=== PATIENT | male | born 1960 | race African-American/Black ===

== ENCOUNTER → 2016-10-05 | Day surgery (SDC) | payer OTHER ==
[~2016-10-05] MED LIST: ACETAMINOPHEN/HYDROcodone 325 MG/5 MG TAB ONE; BACT800T5 PO; BUPIVACAINE/EPINEPHRINE 0.5% 50 ML VIAL ONE; CEPH500C3 PO; EPINEPHrine HCL (1:1000) 1 MG/ML VIAL OTHER ONE; LISI-360 PO; MIDAZOLAM HCL 2 MG/2 ML VIAL ONE; ONDANSETRON HCL 4 MG/2 ML VIAL IV PUSH ONE; PROPOFOL 200 MG/20 ML AMP IV ONE; TRAZ150T75 PO; TRIAMCINOLONE ACETONIDE 40 MG/ML VIAL ONE; ceFAZolin INJ 1,000 MG VIAL ONE
--- NOTE | 2016-10-05 22:27 | MP ---
cc: FRANCISCO TALLEY M.D. 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 Lateral meniscal tear. SURGEON Dr. Francisco Talley METAL INSPECTOR MICHELE Lopez The surgical procedure was assisted by my Advanced Registered Nurse Practitioner. My BUSINESS PROCESS CONSULTANT presence was necessary throughout this case for the manipulation and positioning of the surgical extremity. My BUSINESS PROCESS CONSULTANT was assisting me throughout the duration of this procedure. The skill set of an Advance Registered Nurse Practitioner was medically necessary to complete this procedure. During the surgical case, the medical surgical tech was working at the back table and the Advance Registered Nurse Practitioner was directly assisting me. PROCEDURE Right knee arthroscopic partial medial and partial lateral meniscectomies with chondroplasty medial femoral condyle. ESTIMATED BLOOD LOSS Minimal. ANESTHESIA General anesthesia. PROCEDURE The patient was brought back to the operative theater. The patient received intravenous Ancef. General anesthesia was administered. The right lower extremity was prepped and draped in the usual sterile fashion after being placed into a leg chavez. We started with a standard inferolateral portal followed by inferomedial portal under spinal needle visualization. We found mild to moderate synovitis in suprapatellar pouch. There were a couple small loose bodies which were evacuated with an oscillating shaver. The patella had very minimal chondromalacia. The trochlea had grade 3 to grade 4 chondromalacia in the central portion which did articulate with the midportion of the patella. The trochlea did not have significant areas of unstable segments of cartilage. The medial femoral condyle was found to have extensive grade 3 chondromalacia entire weightbearing surface with multiple areas of unstable cartilage at the edges of this. This was probed. We then used an oscillating shaver to smooth down the cartilage fragments off of the medial femoral condyle. We found an extensive tear of the medial meniscus at the posterior horn. We did probe this using oscillating shaver, meniscal biter to perform a partial meniscectomy, removing approximately 25% of the meniscus. Additionally, there was a small tear in the anterior horn of the medial meniscus which we used an oscillating shaver to debride. The anterior cruciate ligament was found to be intact. Lateral compartment was free of significant chondromalacia, although, there was a small amount of inner edge peripheral tearing towards the junction of the anterior horn and the midbody, used an oscillating shaver to remove this. Ultimately, removed about 10% of the meniscus. We made sure no loose bodies in the medial lateral gutters. We evacuated fluid in the joint and then gave an interarticular injection with 30 cc of 0.25% Marcaine with 40 milligrams of Kenalog. Arthroscopic portals were closed with 2-0 Vicryl followed by 3-0 nylon. Leg was dressed. Postop plan is weightbear as tolerated, early range of motion. MD TIM Freeman/NAYAN /1:21 PM /10:16 PM
== END | disposition home or self-care (01) ==
LOC: ESDC 11:08
PROVIDERS: ATTEND Orthopaedic Surgery
DX: S83.241A Other tear of medial meniscus, current injury, right knee, initial encounter (principal); M94.261 Chondromalacia, right knee; S83.281A Other tear of lateral meniscus, current injury, right knee, initial encounter
CPT/HCPCS: 01400; 29880; J0171; J0690; J2250; J2405; J3010; J3301

== ENCOUNTER 2017-07-04 15:06 | Emergency (ER) | payer OTHER ==
[~2017-07-04] VITALS: Ht 177.8 cm; Wt 70.0 kg
[2017-07-04] VITALS (7 sets, daily range): BP systolic 149–184; BP diastolic 104–115; PULSE 80–90; RESP 11–25; TEMP 97.8; O2SAT 99–100
[~2017-07-04 15:06] MED LIST changes: -ACETAMINOPHEN/HYDROcodone 325 MG/5 MG TAB ONE; -BUPIVACAINE/EPINEPHRINE 0.5% 50 ML VIAL ONE; -EPINEPHrine HCL (1:1000) 1 MG/ML VIAL OTHER ONE; -MIDAZOLAM HCL 2 MG/2 ML VIAL ONE; -ONDANSETRON HCL 4 MG/2 ML VIAL IV PUSH ONE; -PROPOFOL 200 MG/20 ML AMP IV ONE; -TRIAMCINOLONE ACETONIDE 40 MG/ML VIAL ONE; -ceFAZolin INJ 1,000 MG VIAL ONE
--- NOTE | 2017-07-04 15:29 | PD ---
HPI Chief Complaint: Altered Mental Status Time Seen by Provider: 15:20 Travel History International Travel<30 days: No Contact w/Intl Traveler<30days: No History of Present Illness HPI Patient comes to the emergency department by EMS for altered mental status. Per EMS patient was found unresponsive in car. EMS reports family began CPR. EMS states when they got there they set patient up and he was awake. Patient does have a history of pain medication for chronic pain and diabetes medicatin. Patient is easy to wake up but falls back asleep quickly. Thus limiting H and P. PFSH Past Medical History Arthritis: Yes (IN SPINE) Bipolar Disorder: Yes Depression: Yes Heart Rhythm Problems: No Cardiac Catheterization: No Cardiovascular Problems: Yes High Cholesterol: No Congestive Heart Failure: No Diabetes: No Diminished Hearing: No Headaches: Yes Hypertension: Yes Musculoskeletal: Yes (CHRONIC BACK PAIN, BULGING L5, S1, CARPAL TUNNEL BILATERALLY) Schizophrenia: Yes Seizures: Yes (CHILDHOOD) Past Surgical History Body Medical Devices: STS USES TENS UNIT Cardiac Surgery: Yes (IRREGULAR HEART BEAT) Coronary Artery Bypass Graft: No Social History Alcohol Use: Yes ("VERY LITTLE") Tobacco Use: Yes (10 PER DAY) Substance Use: Yes (POT AND CRACK COCAINE, STATES RECENT USE OF POT) Allergies-Medications (Allergen,Severity, Reaction): Coded Allergies: acetaminophen (Unverified Allergy, Mild, ABD PAIN, 07/04/17) aspirin (Unverified Allergy, Mild, RASH, 07/04/17) propoxyphene (Unverified Allergy, Mild, ABD PAIN, 07/04/17) Reported Meds & Prescriptions Reported Meds & Active Scripts Active Reported Dilaudid (Hydromorphone HCl) 8 Mg Tab 8 Mg PO TID Lisinopril 10 Mg Tab 10 Mg PO DAILY Trazodone (Trazodone HCl) 150 Mg Tablet 150 Mg PO HS Prednisone 20 Mg Tab 20 Mg PO DIRECTED Take 60 MG daily x 4 days, then 40 MG x 4 days, then 20 MG daily x 4 days. Bactrim DS (Sulfamethoxazole-Trimethoprim) 800-160 Mg Tab 1 Tab PO BID Review of Systems ROS Limitations: Clinical Condition Except as stated in HPI: all other systems reviewed are Neg Physical Exam Exam Limitations: Clinical Condition Narrative GENERAL: Well-developed, well nourished, in no acute distress, and non-ill appearing. SKIN: Focused skin assessment warm and dry. HEAD: Atraumatic. Normocephalic. EYES: Pupils equal and round and pinpoint. EOMI. No scleral icterus. No injection or drainage. ENT: No nasal bleeding or discharge. Dry lips, but mucous membranes pink and moist. NECK: Trachea midline. Supple. No nuclear rigidity. CARDIOVASCULAR: Regular rate and rhythm. No murmur appreciated. RESPIRATORY: No accessory muscle use. No respiratory distress. Clear to auscultation. Breath sounds equal bilaterally. MUSCULOSKELETAL: No obvious deformities. No clubbing. No cyanosis. No edema. Full range of motion. NEUROLOGICAL: Awake and alert. No obvious cranial nerve deficits. Motor grossly within normal limits. Normal speech. Data Data Last Documented VS Vital Signs Date Time Temp Pulse Resp B/P (MAP) Pulse Ox O2 Delivery O2 Flow Rate FiO2 07/04/17 20:01 100 07/04/17 19:18 81 18 Nasal Cannula 2.00 07/04/17 15:37 97.8 Orders Orders Electrocardiogram (07/04/17 15:17) Complete Blood Count With Diff (07/04/17 15:17) Comprehensive Metabolic Panel (07/04/17 15:17) Prothrombin Time / Inr (Pt) (07/04/17 15:17) Act Partial Throm Time (Ptt) (07/04/17 15:17) Chest, Pa & Lat (07/04/17 15:17) Iv Access Insert/Monitor (07/04/17 15:17) Ecg Monitoring (07/04/17 15:17) Oximetry (07/04/17 15:17) Sodium Chloride 0.9% Flush (Ns Flush) (07/04/17 15:30) Drug Screen, Random Urine (07/04/17 15:17) Alcohol (Ethanol) (07/04/17 15:17) Salicylates (Aspirin) (07/04/17 15:17) Tylenol (Acetaminophen) (07/04/17 15:17) Ckmb (Isoenzyme) Profile (07/04/17 15:17) Magnesium (Mg) (07/04/17 15:17) Troponin I (07/04/17 15:17) Sodium Chlor 0.9% 1000 Ml Inj (Ns 1000 M (07/04/17 15:30) Ammonia (07/04/17 15:23) Urinalysis - C+S If Indicated (07/04/17 15:23) CKMB (07/04/17 15:40) CKMB% (07/04/17 15:40) Ct Brain W/O Iv Contrast(Rout) (07/04/17 17:00) Ckmb (Isoenzyme) Profile (07/04/17 18:20) Troponin I (07/04/17 18:20) CKMB (07/04/17 18:30) CKMB% (07/04/17 18:30) Ed Discharge Order (07/04/17 19:51) Labs Laboratory Tests Test 07/04/17 15:40 07/04/17 17:40 07/04/17 18:30 White Blood Count 8.2 TH/MM3 Red Blood Count 5.44 MIL/MM3 Hemoglobin 15.8 GM/DL Hematocrit 48.2 % Mean Corpuscular Volume 88.6 FL Mean Corpuscular Hemoglobin 29.0 PG Mean Corpuscular Hemoglobin Concent 32.7 % Red Cell Distribution Width 15.6 % Platelet Count 288 TH/MM3 Mean Platelet Volume 8.6 FL Neutrophils (%) (Auto) 70.7 % Lymphocytes (%) (Auto) 16.3 % Monocytes (%) (Auto) 12.0 % Eosinophils (%) (Auto) 0.3 % Basophils (%) (Auto) 0.7 % Neutrophils # (Auto) 5.8 TH/MM3 Lymphocytes # (Auto) 1.3 TH/MM3 Monocytes # (Auto) 1.0 TH/MM3 Eosinophils # (Auto) 0.0 TH/MM3 Basophils # (Auto) 0.1 TH/MM3 CBC Comment DIFF FINAL Differential Comment Prothrombin Time 14.4 SEC Prothromb Time International Ratio 1.4 RATIO Activated Partial Thromboplast Time 22.8 SEC Blood Urea Nitrogen 20 MG/DL Creatinine 1.08 MG/DL Random Glucose 121 MG/DL Total Protein 8.4 GM/DL Albumin 3.9 GM/DL Calcium Level 8.9 MG/DL Magnesium Level 2.2 MG/DL Alkaline Phosphatase 119 U/L Aspartate Amino Transf (AST/SGOT) 60 U/L Alanine Aminotransferase (ALT/SGPT) 56 U/L Total Bilirubin 0.7 MG/DL Sodium Level 138 MEQ/L Potassium Level 4.0 MEQ/L Chloride Level 102 MEQ/L Carbon Dioxide Level 25.1 MEQ/L Anion Gap 11 MEQ/L Estimat Glomerular Filtration Rate 85 ML/MIN Ammonia 35 MCMOL/L Total Creatine Kinase 442 U/L 374 U/L Creatine Kinase MB 13.4 NG/ML 9.8 NG/ML Creatine Kinase MB % 3.0 % 2.6 % Troponin I LESS THAN 0.02 NG/ML LESS THAN 0.02 NG/ML Salicylates Level 1.8 MG/DL Acetaminophen Level LESS THAN 2.0 MCG/ML Ethyl Alcohol Level LESS THAN 3 MG/DL Urine Color YELLOW Urine Turbidity CLEAR Urine pH 5.5 Urine Specific [place] 1.017 Urine Protein TRACE mg/dL Urine Glucose (UA) NEG mg/dL Urine Ketones NEG mg/dL Urine Occult Blood MOD Urine Nitrite NEG Urine Bilirubin NEG Urine Urobilinogen LESS THAN 2.0 MG/DL Urine Leukocyte Esterase NEG Urine RBC 15 /hpf Urine WBC 1 /hpf Microscopic Urinalysis Comment CATH-CULT NOT IND Urine Opiates Screen NEG Urine Barbiturates Screen NEG Urine Amphetamines Screen NEG Urine Benzodiazepines Screen NEG Urine Cocaine Screen POS Urine Cannabinoids Screen NEG MDM Medical Decision Making Medical Screen Exam Complete: Yes Emergency Medical Condition: Yes Interpretation(s) EKG reviewed by Dr. Alford shows sinus rhythm ventricular rate of 84. No STEMI. Differential Diagnosis Altered mental status, acute coronary syndrome, CVA, TIA, metabolic disturbance , substance abuse, polypharmacy, overmedicated, overdose Narrative Course Patient seen and examined. Initial laboratory radiological studies were ordered. IV was established patient placed on cardiac monitoring. 1930 patient reassessed not be awake and alert at bedside. Patient states he is not sure exactly what happened today. States he been working and that he does not that he was related to issue. Family states that he seemed to be fine and that he just was not. Patient denies any complaints currently. States that he chronically has poorly controlled blood pressure but takes medication as prescribed. Denies any symptoms currently. Denies any chest pain, shortness of breath, headache, noticed anywhere, loss change in bowel or bladder. The patient has a prior history of hypertension and states has been taking their antihypertensive medications. The patient has no symptoms as well. The patient denied headache, changes in vision, nausea, vomiting, dizziness, weakness or loss of sensation. The patient denied and chest, back or abdominal pain. The patient also denied any shortness of breath, dyspnea on exertion, orthopnea or PND. The patient denies any edema to extremities. The patients blood pressures at discharge were at an acceptable level. I discussed with the patient that the standard of care is to not adjust antihypertensive medications at this time and for them to follow up with a primary care physician for continued outpatient evaluation and potential adjustment of blood pressure medication at that time. Return warnings were given to the patient and the patient agreed with plan of care. Patient in no obvious distress upon re-evaluation. All pertinent laboratory/ Radiology result(s) discussed with patient. I suspect patient's symptoms are secondary to overmedication and possible heat exhaustion. Discussed patient with Dr. Alford prior discharge, who saw and evaluated the patient and is in agreement with plan of care and disposition. Any questions/concerns in reference to patient diagnosis/condition discussed and clarified prior to patient's discharge. Reinforced sheer importance of close follow up with patient 's primary physician or primary care clinic. Instructed patient to return to ED immediately, if symptoms return/worsen. Patient showed understanding of above instructions. Further instructions and recommendations were detailed in discharge paperwork. Patient ambulated without difficulty out of ED at discharge. Diagnosis Primary Impression: Altered mental status, unspecified Qualified Codes: R41.82 - Altered mental status, unspecified Additional Impression: Uncontrolled hypertension Referrals: [facility] Patient Instructions: Altered Mental Status (ED), General Instructions, Hypertension (ED) Additional Instructions: Follow-up with your primary care physician this week for reevaluation and possible adjustment of your blood pressure medication. Return to the emergency department if symptoms get worse. Disposition: 01 DISCHARGE HOME Condition: Stable Mino Sousa July 04, 2017 15:29
[2017-07-04] MEDS ORDERED: SODIUM CHLORIDE 0.9% FLUSH 10 ML FLUSH IVF PRN (15:30)
[2017-07-04] MEDS ORDERED: SODIUM CHLOR 0.9% 1000 ML INJ 1,000 ML IV ONE (15:30)
--- NOTE | 2017-07-04 15:31 | PD ---
Data Data Last Documented VS Vital Signs Date Time Temp Pulse Resp B/P (MAP) Pulse Ox O2 Delivery O2 Flow Rate FiO2 07/04/17 20:01 100 07/04/17 19:18 81 18 Nasal Cannula 2.00 07/04/17 15:37 97.8 Orders Orders Electrocardiogram (07/04/17 15:17) Complete Blood Count With Diff (07/04/17 15:17) Comprehensive Metabolic Panel (07/04/17 15:17) Prothrombin Time / Inr (Pt) (07/04/17 15:17) Act Partial Throm Time (Ptt) (07/04/17 15:17) Chest, Pa & Lat (07/04/17 15:17) Iv Access Insert/Monitor (07/04/17 15:17) Ecg Monitoring (07/04/17 15:17) Oximetry (07/04/17 15:17) Sodium Chloride 0.9% Flush (Ns Flush) (07/04/17 15:30) Drug Screen, Random Urine (07/04/17 15:17) Alcohol (Ethanol) (07/04/17 15:17) Salicylates (Aspirin) (07/04/17 15:17) Tylenol (Acetaminophen) (07/04/17 15:17) Ckmb (Isoenzyme) Profile (07/04/17 15:17) Magnesium (Mg) (07/04/17 15:17) Troponin I (07/04/17 15:17) Sodium Chlor 0.9% 1000 Ml Inj (Ns 1000 M (07/04/17 15:30) Ammonia (07/04/17 15:23) Urinalysis - C+S If Indicated (07/04/17 15:23) CKMB (07/04/17 15:40) CKMB% (07/04/17 15:40) Ct Brain W/O Iv Contrast(Rout) (07/04/17 17:00) Ckmb (Isoenzyme) Profile (07/04/17 18:20) Troponin I (07/04/17 18:20) CKMB (07/04/17 18:30) CKMB% (07/04/17 18:30) Ed Discharge Order (07/04/17 19:51) Labs Laboratory Tests Test 07/04/17 15:40 07/04/17 17:40 07/04/17 18:30 White Blood Count 8.2 TH/MM3 Red Blood Count 5.44 MIL/MM3 Hemoglobin 15.8 GM/DL Hematocrit 48.2 % Mean Corpuscular Volume 88.6 FL Mean Corpuscular Hemoglobin 29.0 PG Mean Corpuscular Hemoglobin Concent 32.7 % Red Cell Distribution Width 15.6 % Platelet Count 288 TH/MM3 Mean Platelet Volume 8.6 FL Neutrophils (%) (Auto) 70.7 % Lymphocytes (%) (Auto) 16.3 % Monocytes (%) (Auto) 12.0 % Eosinophils (%) (Auto) 0.3 % Basophils (%) (Auto) 0.7 % Neutrophils # (Auto) 5.8 TH/MM3 Lymphocytes # (Auto) 1.3 TH/MM3 Monocytes # (Auto) 1.0 TH/MM3 Eosinophils # (Auto) 0.0 TH/MM3 Basophils # (Auto) 0.1 TH/MM3 CBC Comment DIFF FINAL Differential Comment Prothrombin Time 14.4 SEC Prothromb Time International Ratio 1.4 RATIO Activated Partial Thromboplast Time 22.8 SEC Blood Urea Nitrogen 20 MG/DL Creatinine 1.08 MG/DL Random Glucose 121 MG/DL Total Protein 8.4 GM/DL Albumin 3.9 GM/DL Calcium Level 8.9 MG/DL Magnesium Level 2.2 MG/DL Alkaline Phosphatase 119 U/L Aspartate Amino Transf (AST/SGOT) 60 U/L Alanine Aminotransferase (ALT/SGPT) 56 U/L Total Bilirubin 0.7 MG/DL Sodium Level 138 MEQ/L Potassium Level 4.0 MEQ/L Chloride Level 102 MEQ/L Carbon Dioxide Level 25.1 MEQ/L Anion Gap 11 MEQ/L Estimat Glomerular Filtration Rate 85 ML/MIN Ammonia 35 MCMOL/L Total Creatine Kinase 442 U/L 374 U/L Creatine Kinase MB 13.4 NG/ML 9.8 NG/ML Creatine Kinase MB % 3.0 % 2.6 % Troponin I LESS THAN 0.02 NG/ML LESS THAN 0.02 NG/ML Salicylates Level 1.8 MG/DL Acetaminophen Level LESS THAN 2.0 MCG/ML Ethyl Alcohol Level LESS THAN 3 MG/DL Urine Color YELLOW Urine Turbidity CLEAR Urine pH 5.5 Urine Specific [place] 1.017 Urine Protein TRACE mg/dL Urine Glucose (UA) NEG mg/dL Urine Ketones NEG mg/dL Urine Occult Blood MOD Urine Nitrite NEG Urine Bilirubin NEG Urine Urobilinogen LESS THAN 2.0 MG/DL Urine Leukocyte Esterase NEG Urine RBC 15 /hpf Urine WBC 1 /hpf Microscopic Urinalysis Comment CATH-CULT NOT IND Urine Opiates Screen NEG Urine Barbiturates Screen NEG Urine Amphetamines Screen NEG Urine Benzodiazepines Screen NEG Urine Cocaine Screen POS Urine Cannabinoids Screen NEG MDM Supervised Visit with SILVERIO: Yes Narrative Course I, Dr. Alford, have reviewed the advance practice practitioner's documentation and am in agreement, met with the patient face to face, made the diagnosis, and the medical decision making was done by me. *My assessment and Findings: Patient seen and examined by me in addition to Harshil Sousa, this is a 56-year-old male presents emergency department for altered mental status, pinpoint pupils but did not require any Narcan on arrival he saturating well and arouses with minimal effort. Suspicion is for narcotic overdose, apparently the patient had chest compressions performed on scene, he arouses a long enough to say he has no medical complaints. He then drifts off to sleep fairly quickly. 2 troponins negative, will be observed until clinically sober and arousable for discharge. Bk Alford MD July 04, 2017 15:31
--- NOTE | 2017-07-04 15:45 | RADRPT ---
EXAM DATE: 07/04/2017 3:39 PM EDT AGE/SEX: 56 years / Male INDICATIONS: Chest pain and shortness of breath. CLINICAL DATA: This is the patient's initial encounter. Patient reports that signs and symptoms have been present for 1 day and indicates a pain score of 5/10. MEDICAL/SURGICAL HISTORY: None. None. COMPARISON: [facility] [place], CT CERVICAL SPINE W/O CONTRAST, 10/23/2012. . FINDINGS: PA and lateral views of the chest demonstrate the lungs to be symmetrically aerated without evidence of mass, infiltrate or effusion. The cardiomediastinal contours are unremarkable. Osseous structures are intact. CONCLUSION: No active disease. Prominent osteophytic ridging in the thoracic spine. Fusion lower cervical spine. Electronically signed by: Catarino Duke MD 07/04/2017 3:43 PM EDT
[2017-07-04] MEDS ORDERED: PRED20 PO (15:55)
[2017-07-04] MEDS ORDERED: BACT800T5 PO (15:55)
[2017-07-04] MEDS ORDERED: LISI10TA3 PO (15:56)
[2017-07-04] MEDS ORDERED: TRAZ1TAB14 PO (15:56)
[2017-07-04] MEDS ORDERED: DILA8TAB4 PO (15:56)
[2017-07-04 16:25] LABS: AUTOMATED NEUTROPHIL # 5.8 TH/MM3 (1.8-7.7); BASOPHIL # 0.1 TH/MM3 (0-0.2); BASOPHIL % 0.7 % (0.0-2.0); EOSINOPHIL % 0.3 % (0.0-4.0); HEMATOCRIT 48.2 % (39.0-51.0); HEMOGLOBIN 15.8 GM/DL (13.0-17.0); LYMPH % 16.3 % (9.0-44.0); LYMPHOCYTE # 1.3 TH/MM3 (1.0-4.8); MEAN CELL VOLUME 88.6 FL (80.0-100.0); MEAN CORPUSCULAR HGB CONC 32.7 % (32.0-36.0); MEAN PLATELET VOLUME 8.6 FL (7.0-11.0); NEUT % 70.7 % (16.0-70.0); PLATELET COUNT 288 TH/MM3 (150-450); RED BLOOD COUNT 5.44 MIL/MM3 (4.50-5.90); RED CELL DISTRIBUTION WIDTH 15.6 % (11.6-17.2); WHITE BLOOD COUNT 8.2 TH/MM3 (4.0-11.0)
[2017-07-04 16:38] LABS: INTERNATIONAL NORMALIZED RATIO 1.4 RATIO; PROTHROMBIN TIME - PATIENT 14.4 SEC (9.8-11.6)
[2017-07-04 16:45] LABS: ALBUMIN 3.9 GM/DL (3.4-5.0); AST (GOT) 60 U/L (15-37); BICARBONATE 25.1 MEQ/L (21.0-32.0); BLOOD UREA NITROGEN 20 MG/DL (7-18); CALCIUM 8.9 MG/DL (8.5-10.1); CHLORIDE 102 MEQ/L (98-107); CREATININE 1.08 MG/DL (0.60-1.30); GLOMERULAR FILTRATION RATE 85 ML/MIN (>89); GLUCOSE,RANDOM 121 MG/DL (74-106); MAGNESIUM 2.2 MG/DL (1.5-2.5); SODIUM (NA) 138 MEQ/L (136-145)
[2017-07-04 16:48] LABS: ALKALINE PHOSPHATASE 119 U/L (45-117); ALT (GPT) 56 U/L (12-78); TOTAL BILIRUBIN ADULT 0.7 MG/DL (0.2-1.0); TOTAL PROTEIN 8.4 GM/DL (6.4-8.2); TROPONIN I LESS THAN 0.02 NG/ML (0.02-0.05)
[2017-07-04 16:49] LABS: ACETAMINOPHEN LESS THAN 2.0 MCG/ML (10.0-30.0)
--- NOTE | 2017-07-04 18:12 | RADRPT ---
EXAM DATE: 07/04/2017 6:07 PM EDT AGE/SEX: 56 years / Male INDICATIONS: Altered mental status CLINICAL DATA: This is the patient's initial encounter. Patient reports that signs and symptoms have been present for 1 day and indicates a pain score of 0/10. MEDICAL/SURGICAL HISTORY: Cardiovascular disease. Hypertension. Seizures None. RADIATION DOSE: 37.99 CTDI (mGy) COMPARISON: No prior [facility] exams available for comparison. TECHNIQUE: CT of the head without contrast. Using automated exposure control and adjustment of the mA and/or kV according to patient size, radiation dose was kept as low as reasonably achievable to ob tain optimal diagnostic quality images. FINDINGS: Cerebrum: The ventricles are normal for age. No evidence of midline shift, mass lesion, hemorrhage or acute infarction. No extraaxial fluid collections are seen. Posterior Fossa: The cerebellum and brainstem are intact. The 4th ventricle is midline. The cerebe llopontine angle is unremarkable. Extracranial: The visualized portion of the orbits is intact. Skull: The calvaria is intact. No evidence of skull fracture. CONCLUSION: 1. No acute intracranial abnormalities. Small retention cyst in the maxillary sinuses bilaterally. E thmoid air cell mucosal thickening. Electronically signed by: Catarion Duke MD 07/04/2017 6:11 PM EDT
[2017-07-04 18:27] LABS: BILIRUBIN, URINE NEG (NEG); BLOOD, URINE MOD (NEG); GLUCOSE,URINE NEG (NEG); KETONE, URINE NEG (NEG); NITRITE,URINE NEG (NEG); PH, URINE 5.5 (5.0-8.5); URINE COLOR YELLOW (YELLW/STRAW); URINE LEUKOCYTE ESTERASE NEG (NEG)
[2017-07-04 19:44] LABS: TROPONIN I LESS THAN 0.02 NG/ML (0.02-0.05)
--- NOTE | 2017-07-05 14:06 | EKG ---
Date Performed: 07/04/2017 Time Performed: 15:41:53 PTAGE: 56 years EKG: Sinus rhythm RIGHT ATRIAL ENLARGEMENT POSSIBLE LEFT ATRIAL ENLARGEMENT ABNORMAL ECG PREVIOUS TRACING : 10/20/2010 11.24 Since the previous tracing, no significant change noted DOCTOR: Amol Abreu Interpretating Date/Time 07/05/2017 14:02:32
== END 2017-07-04 20:15 | disposition home or self-care (01) ==
LOC: NEPC 15:06
DX: R41.82 Altered mental status, unspecified (principal); I10 Essential (primary) hypertension; R94.31 Abnormal electrocardiogram [ECG] [EKG]; R07.9 Chest pain, unspecified; E11.9 Type 2 diabetes mellitus without complications; F31.9 Bipolar disorder, unspecified; F17.200 Nicotine dependence, unspecified, uncomplicated; F12.90 Cannabis use, unspecified, uncomplicated; F14.90 Cocaine use, unspecified, uncomplicated
CPT/HCPCS: 70450; 71046; 80053; 80307; 81001; 82140; 82550; 82552; 83735; 84484; 85025; 85610; 85730; 93005; 96360; 99285; J7030